=== PATIENT | female | born 1940 | race Caucasian/White ===

== ENCOUNTER 2017-01-16 17:17 | Inpatient (IN) | payer MEDICARE, MEDICAID ==
[~2017-01-16] VITALS: Ht 167.6 cm; Wt 70.3 kg
[2017-01-16 18:29] LABS: BASOPHILS 0.4 % (0-2); EOSINOPHILS 1.3 % (0-7); HEMATOCRIT 42.4 % (36.0-48.0); IMMATURE GRANULOCYTES 0.1 % (0-5); LYMPHOCYTES 28.2 % (15-50); MCH 30.6 pg (26.0-34.0); MCV 92.6 fL (80.0-100.0); MEAN PLATELET VOLUME 9.6 fL (7.4-10.4); MONOCYTES 8.3 % (2-11); NEUTROPHILS 61.7 % (40-80); PLATELET COUNT 209 10x3/uL (130-400); RBC 4.58 10x6/uL (4.00-5.40); RDW 13.3 % (11.5-14.5)
[2017-01-16 18:44] LABS: ALBUMIN 3.7 g/dL (3.4-5.0); ALKALINE PHOSPHATASE 111 U/L (46-116); ALT (SGPT) 17 U/L (10-68); BILIRUBIN - TOTAL 0.34 mg/dL (0.2-1.3); CALC OSMOLALITY 286 mosm/kg (275-300); CALCIUM 8.8 mg/dL (8.5-10.1); CARBON DIOXIDE 28.5 mmol/L (21.0-32.0); CHLORIDE - SERUM 105 mmol/L (98-107); CREATININE - SERUM 0.6 mg/dL (0.6-1.3); GLUCOSE 96 mg/dL (74-106); POTASSIUM - SERUM 3.3 mmol/L (3.5-5.1); PROTEIN - SERUM 7.4 g/dL (6.4-8.2); SODIUM 143 mmol/L (136-145); UREA NITROGEN 18 mg/dL (7-18); eGFR NON AFRICAN AMERICAN > 90 mL/min (90-120)
[2017-01-16 20:57] LABS: APPEARANCE CLEAR (CLEAR); COLOR DK YELLOW (YELLOW)
[2017-01-16 20:58] LABS: BILIRUBIN NEGATIVE (NEGATIVE); GLUCOSE NEGATIVE (NEGATIVE); KETONE MODERATE mg/dL (NEGATIVE); LEUKOCYTE ESTERASE NEGATIVE (NEGATIVE); NITRITE NEGATIVE (NEGATIVE); PROTEIN NEGATIVE (NEGATIVE); UROBILINOGEN NORMAL (NORMAL)
[2017-01-16 21:00] LABS: EPITHELIAL CELLS 0-5 /hpf (0-5)
[2017-01-16 21:03] LABS: BACTERIA MODERATE /hpf (NONE SEEN); CALCIUM OXALATE CRYSTALS OCC /hpf (NONE SEEN)
[2017-01-16 21:06] LABS: UDS - AMPHET NEGATIVE QUAL (NEGATIVE); UDS - BARB NEGATIVE QUAL (NEGATIVE); UDS - BENZO NEGATIVE QUAL (NEGATIVE); UDS - COCAINE NEGATIVE QUAL (NEGATIVE); UDS - METH NEGATIVE QUAL (NEGATIVE); UDS - OPIATE NEGATIVE QUAL (NEGATIVE); UDS - PCP NEGATIVE QUAL (NEGATIVE); UDS - THC NEGATIVE QUAL (NEGATIVE)
[2017-01-16 22:45] VITALS: BP 112/69; BMI 25.0
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
[2017-01-17] MEDS ORDERED: ARICEPT10 MG PO (01:46)
[2017-01-17] MEDS ORDERED: ATIVAN0.5 MG PO ×2 (01:47→01:48)
[2017-01-17] MEDS ORDERED: PAROXETINE HCL10 MG PO (01:49)
[2017-01-17] MEDS ORDERED: CYCLOBENZAPRINE10 MG PO (01:50)
[2017-01-17] MEDS ORDERED: BAYER CHEWABLE81 MG PO (01:50)
[2017-01-17] MEDS ORDERED: MACROBID100 MG PO (01:52)
[2017-01-17] MEDS ORDERED: IMODIUM2 MG PO (01:52)
[2017-01-17 06:32] LABS: BASOPHILS 0.4 % (0-2); EOSINOPHILS 1.7 % (0-7); HEMOGLOBIN 13.4 g/dL (12-16); IMMATURE GRANULOCYTES 0.2 % (0-5); LYMPHOCYTES 39.8 % (15-50); MCHC 32.7 g/dL (31.0-37.0); MCV 91.7 fL (80.0-100.0); MEAN PLATELET VOLUME 9.6 fL (7.4-10.4); MONOCYTES 7.9 % (2-11); PLATELET COUNT 187 10x3/uL (130-400); RBC 4.47 10x6/uL (4.00-5.40); RDW 13.1 % (11.5-14.5); WBC 5.2 10x3/uL (4.8-10.8)
[2017-01-17 06:46] LABS: HEMOGLOBIN A1C 5.1 % (4.8-6.0)
[2017-01-17 06:59] LABS: ALBUMIN 3.3 g/dL (3.4-5.0); ALKALINE PHOSPHATASE 103 U/L (46-116); ALT (SGPT) 17 U/L (10-68); BILIRUBIN - TOTAL 0.43 mg/dL (0.2-1.3); CALC OSMOLALITY 289 mosm/kg (275-300); CALCIUM 8.5 mg/dL (8.5-10.1); CARBON DIOXIDE 30.7 mmol/L (21.0-32.0); CHLORIDE - SERUM 107 mmol/L (98-107); CHOL - HDL RATIO 4.1 ratio (2.3-4.1); CHOLESTEROL, TOTAL 232 mg/dL (0-200); CREATININE - SERUM 0.5 mg/dL (0.6-1.3); GLUCOSE 92 mg/dL (74-106); HDL CHOLESTEROL 57 mg/dL (32-96); LDL CHOLESTEROL 157 mg/dL (0-100); LDL-HDL RATIO 2.8 ratio (1.5-3.5); PROTEIN - SERUM 6.9 g/dL (6.4-8.2); SODIUM 144 mmol/L (136-145); THYROID STIMULATING HORMONE 2.78 uIU/mL (0.36-3.74); TRIGLYCERIDE 93 mg/dL (30-200); UREA NITROGEN 21 mg/dL (7-18); eGFR NON AFRICAN AMERICAN > 90 mL/min (90-120)
[2017-01-17 08:40] VITALS: BP 115/64
--- NOTE | 2017-01-17 10:57 | NUR ---
B) PATIENT IS AWAKE AND SHE IS ORIENTED TO SELF AND KNOWS SHE IS IN THE HOSPITAL, BUT DOES NOT HAVE INSIGHT TO WHY SHE IS HERE. PATIENTS LEFT ARM IS CONTRACTURED AND LEFT LEG IS VERY WEAK. PATIENT HAS ASKED WHEN SHE CAN HAVE HER PHONE, EXPLAINED TO HER WHEN SHE IS DISCHARGED FROM HERE. PATIENT VERBALIZED UNDERSTANDING. PATIENTS SISTER CAME TO THE UNIT TO ASK ABOUT NEXT STEPS THEY NEED TO FOLLOW. SHE AND THE PATIENTS SON WOULD LIKE TO GET POA AND THEY FEEL THEIR NEXT STEP IS SKILLED NURSING PLACEMENT. I) PROVIDE PRESCRIBED MEDS, REDIRECT AND REORIENT NEEDED. R) PATIENT IS IN GROUP NOW AND SHE IS PARTICIPATING. NO AGGRESSION NOTED THIS AM. P) CONTINUE POC.
[2017-01-17 15:14] VITALS: BMI 25.0
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
[2017-01-17 19:30] VITALS: BP 116/74
--- NOTE | 2017-01-18 03:31 | NUR ---
B) patient alert and oriented to person place and time, patient not fully aware of why she is her, she wants to return home, calm and cooperative with care and assessment, I) Administered perscribed medications, monitored for safety and behaviors, R) Medication compliant, unit milieu compliant, P) Continue plan of care.
[2017-01-18 07:22] LABS: FOLATE (FOLIC ACID) - SERUM >20.0 ng/mL (>3.0); RAPID PLASMA REAGIN Non Reactive (Non Reactive)
--- NOTE | 2017-01-18 10:00 | NUR ---
B) AWAKE AND ORIENT TO NAME AND PLACE, BUT ON INSIGHT TO REASON SHE IS IN HOSPITAL. LEFT ARM IS CONTRACTED FROM OLD CVA, ALSO LEFT LEG VERY WEAK. CALM AND COOPERATIVE WITH ASSESSMENT AND CARE. PLEASANT MOOD AND POLITE TO STAFF. I) ADMINISTERED PRESCRIBED MEDICATIONS. REDIRECT AND REORIENT ORDERED. R) COMPLIANT WITH MEDICATIONS. VSS MONITOR FOR SAFETY AND FALL PRECAUTIONS. P) CONTINUE WITH PLAN OF CARE.
[2017-01-18 10:02] VITALS: BP 110/68
[2017-01-18 19:30] VITALS: BP 139/78
--- NOTE | 2017-01-18 20:42 | NUR ---
B) PATIENT IS AWAKE AND ALERT, SHE IS ORIENTED TIMES 3, BUT SHE IS FLAT TO BLUNTED IN AFFECT. SHE IS CALM, BUT STILL DOES NOT BELIEVE SHE NEEDS TO BE HERE. PATIENT CAN SELF PROPEL IN A W/C GOING BACKWARD. I) PROVIDE PRESCRIBED MEDS. R) PATIENT IS COMPLIANT WITH MEDS AND UNIT MILIEU. P) CONTINUE POC.
[2017-01-19 09:23] VITALS: BP 104/64
--- NOTE | 2017-01-19 15:01 | NUR ---
SITTING AT TABLE IN WHEELCHAIR. COMPLAINING OF LEFT SHOULDER PAIN. VOLTAREN GEL IN USE. DENIES ANY NEEDS AT PRESENT. MOOD CALM AND COOPERATIVE AT THIS TIME.
[2017-01-19 19:30] VITALS: BP 110/93
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
[2017-01-20 07:48] VITALS: BP 105/65
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
--- NOTE | 2017-01-20 11:02 | NUR ---
PT CONTINUES TO MAKE RANDOM PARANOID DELUSIONAL STATEMENTS. ORIENTED TO PERSON AND PLACE. EDUCATED ON CURRENT ENVIORNMENT AND WHAT IS REALITY VERSUS HER DELUSIONS. NO AGGRESSION NOTED. MEDICATIONS GIVEN ORDERED. FALL PRECAUTIONS MAINTAINED. WILL CONTINUE TO MONITOR AND CONTINUE WITH PLAN OF CARE.
[2017-01-20 19:29] VITALS: BP 105/51
--- NOTE | 2017-01-21 02:20 | NUR ---
B) P atient alert and oriented to self and hospital, calm and cooperative with care and assessment, quiet and keeping to herself, I) Administered perscribed medications, monitored for behaviors, R) Medication compliant, no behaviors noted, P) Continue plan of care.
--- NOTE | 2017-01-21 09:49 | NUR ---
PT IS CALM, COOPERATIVE. NO AGGRESSION NOTED. MEDICATIONS GIVEN ORDERED. FALL PRECAUTIONS MAINTAINED. WILL CONTINUE TO MONITOR AND CONTINUE WITH PLAN OF CARE.
[2017-01-21 10:18] VITALS: BP 117/64
--- NOTE | 2017-01-21 10:54 | PN ---
PATIENT:CRISTI SAGASTUME MEDICAL RECORD: [id number] LOCATION:[facility] ADMISSION DATE: 01/16/17 PROGRESS NOTE DATE OF SERVICE: 01/20/2017 SUBJECTIVE: The patient complains of loss of feeling and cold sensation in her left lower extremity. On exam, the patient is pleasant and cooperative. Staff will notify Dr. Hong about founding. The patient has been taking her medication as prescribed. She does exhibit significant paranoid delusional ideation in particular regarding her and family. On exam, mood is euthymic. Affect is fairly pleasant. Speech tends to be tangential. Content of thought focuses on seems of persecution. Sensorium is unchanged. ASSESSMENT: No change in diagnosis. PLAN: 1. Maintain current medication. 2. Continue supportive therapy. TRANSINT:[id number] Voice Confirmation ID: [id number] DOCUMENT ID: [id number] OBED GERMAIN III, MD at 1054 CC: [id number] DICTATION DATE: 01/20/17 1040 SCRAP COLLECTOR: 01/20/17 1930 ADM IN [facility] [address] [id number]
[2017-01-21 15:09] VITALS: Ht 167.6 cm; Wt 70.3 kg
[2017-01-21 19:30] VITALS: BP 122/68
--- NOTE | 2017-01-22 00:26 | NUR ---
B) Patient is alert and oriented , calm and cooperative, I) Administered perscribed medications, monitored for falls and safety, R) Medication compliant, resting quietly P) Continue plan of care.
[2017-01-22 08:37] VITALS: BP 108/57
--- NOTE | 2017-01-22 10:25 | PN ---
PATIENT:CRISTI SAGASTUME MEDICAL RECORD: [id number] LOCATION:[facility] ADMISSION DATE: 01/16/17 PROGRESS NOTE DATE OF SERVICE: 01/21/2017 SUBJECTIVE: No new verbal complaint. OBJECTIVE: Case management is in the process of making application on behalf of the patient for admission to [facility]. The patient underwent neuropsychological testing and scored a 22/30 on the [facility] Mental Status Scale this exhibits a borderline dementia. Of note is that her clock drawing efforts on that portion of the test were exceedingly poor. Short-term memory; however, was fairly good. On exam, mood is euthymic, affect is bland and pleasant. Speech is fairly fluent. Content of thought is negative for overt psychosis. Sensorium is unchanged. ASSESSMENT: No change in diagnosis. PLAN: 1. We will maintain current treatment plan. 2. Advance Namenda to 10 mg twice a day. TRANSINT:[id number] Voice Confirmation ID: [id number] DOCUMENT ID: [id number] OBED GERMAIN III, MD at 1025 CC: [id number] DICTATION DATE: 01/21/17 1147 HOME PLANNING CONSULTANT SALESPERSON: 01/21/17 1233 ADM IN [facility] [address] [place] [address]
--- NOTE | 2017-01-22 11:08 | NUR ---
B) Rec'd pt in dining room for b'fast, alert, cooperative, feeds self without difficulty, left sided paralysis due to old cva. I) Admin meds as ordered and provide group therapy as directed. R) No s/s adverse reaction to meds, participates in group therapy. P) Cont plan of care including meds and group therapy.
[2017-01-22 21:41] VITALS: BP 153/83
--- NOTE | 2017-01-23 01:01 | NUR ---
B) P atient alert and oriented calm and cooperative with care and assessment, no behaviors noted, I) Administered perscribed medications, monitored for falls and safety, R) Medication compliant, resting now quietly, P) Continue plan of care.
--- NOTE | 2017-01-23 03:51 | PN ---
PATIENT:CRISTI SAGASTUME MEDICAL RECORD: [id number] LOCATION:[facility] ADMISSION DATE: 01/16/17 PROGRESS NOTE DATE OF SERVICE: 01/22/2017 SUBJECTIVE: No new complaint. OBJECTIVE: The patient has continued to be cooperative and pleasant. She will need a [place] assessment prior to possible transfer to senior living. On exam, mood is euthymic. Affect is bland. Speech is fairly fluent. Content of thought is negative for overt psychosis. Sensorium shows no change. ASSESSMENT: No change in diagnosis. PLAN: 1. Continue all current medications. 2. Continue supportive therapy. TRANSINT:[id number] Voice Confirmation ID: [id number] DOCUMENT ID: [id number] OBED GERMAIN III, MD at 0351 CC: [id number] DICTATION DATE: 01/22/17 1114 NETWORK DIRECTOR: 01/22/17 1746 ADM IN [facility] [address] [place] [address]
--- NOTE | 2017-01-23 07:45 | NUR ---
ASSESSMENT COMPLETE. INCONT OF BLADDER AT TIMES. PARALYSIS AND CONTRACTURES NOTED TO LUE. WEAKNESS NOTED TO LLE. MOOD PLEASANT THIS AM. DENIES ANY NEEDS AT PRESENT.
[2017-01-23] MEDS ORDERED: LIPITOR10 MG PO (11:10)
[2017-01-23] MEDS ORDERED: LEXAPRO10 MG PO (11:11)
[2017-01-23] MEDS ORDERED: NAMENDA5 MG PO (11:11)
[2017-01-23 19:52] VITALS: BP 120/62
--- NOTE | 2017-01-23 20:00 | NUR ---
B) AWAKE AND ALERT, ORIENTED X 3. SITTING IN WHEELCHAIR IN DAYROOM. CALM AND COOPERATIVE WITH ASSESSMENT AND CARE. NO AGGRESSION NOTED. I) ADMINISTERED PRESCRIBED MEDICATIONS. VSS. R) COMPLIANT WITH TAKING MEDS AND UNIT MILIEU. MAINTAIN FALL PRECAUTIONS. P) CONTINUE CURRENT PLAN OF CARE.
[2017-01-24 08:46] VITALS: BP 105/54
--- NOTE | 2017-01-24 10:18 | NUR ---
B) PATIENT IS AWAKE AND ALERT AND SHE KNOWS SHE WILL BE GOING TO [place] TODAY. SHE SAID "WELL, NO ONE WANTS ME SO I AM GOING TO THE [facility]" TRIED TO EXPLAIN TO PATIENT THAT IS NOT TRUE, BUT THAT SHE REQUIRES MORE CARE AND FOR HER SAFETY AND MENTAL HEALTH SHE NEEDS TO HAVE 24/7 CARE. I) PROVIDE PRESCRIBED MEDS. R) PATIENT IS COMPLIANT WITH MEDS AND UNIT MILIEU. PATIENT IS PACKED AND READY TO GO, WILL FAX AND PROVIDE A HARD COPY FOR THE REGISTERED NURSING PROFESSOR TO HAND CARRY TO [employer]. P) CONTINUE POC.
--- NOTE | 2017-01-24 12:24 | NUR ---
CALLED REPORT TO JUAN MANUEL.
--- NOTE | 2017-01-24 13:06 | NUR ---
TORIBIO HERE AND REMELT SUGAR BOILER ALONG WITH HALF-WAY STAFF ASSISTED PATIENT TO THEIR VAN IN A W/C, SHE IS NOW D/C'D OFF THE UNIT.
--- NOTE | 2017-01-25 10:43 | PN ---
PATIENT:CRISTI SAGASTUME MEDICAL RECORD: [id number] LOCATION:[facility]ANIE García ADMISSION DATE: 01/16/17 PROGRESS NOTE DATE OF SERVICE: 01/24/2017 SUBJECTIVE: The patient's case was discussed with staff. She has no new complaint. OBJECTIVE: The patient is seriously and significantly impaired cognitively. She has not been aggressive. She is eating reasonably well. ASSESSMENT: No change in diagnoses. PLAN: The patient will be transitioned out of the hospital today. Her long-term prognosis is guarded. Brief supportive and educational interventions were made. TRANSINT:[id number] Voice Confirmation ID: [id number] DOCUMENT ID: [id number] YANET ALBARRAN MD at 1043 CC: [id number] DICTATION DATE: 01/24/17 1237 GAUGE MAKER APPRENTICE: 01/24/17 1729 DIS IN 01/24/[address] [place] [address]
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
== END 2017-01-24 13:08 | DRG 57 ==
LOC: D.ER 17:17 → D.PSYCH 21:41
PROVIDERS: Emergency Medicine; ADMIT Psychiatry & Neurology Psychiatry
DX: I69.919 Unspecified symptoms and signs involving cognitive functions following unspecified cerebrovascular disease (principal); F01.51 Vascular dementia, unspecified severity, with behavioral disturbance; I69.954 Hemiplegia and hemiparesis following unspecified cerebrovascular disease affecting left non-dominant side; N39.0 Urinary tract infection, site not specified; E78.5 Hyperlipidemia, unspecified; Z74.09 Other reduced mobility; F41.8 Other specified anxiety disorders; M19.012 Primary osteoarthritis, left shoulder

== ENCOUNTER 2017-04-16 13:10 | Emergency (ER) | payer MEDICARE ==
[2017-01-21 15:09] VITALS: BMI 25.0
[~2017-04-16 13:10] MED LIST: ARICEPT10 MG PO; ATIVAN0.5 MG PO; BAYER CHEWABLE81 MG PO; CYCLOBENZAPRINE10 MG PO; IMODIUM2 MG PO; LEXAPRO10 MG PO; LIPITOR10 MG PO; MACROBID100 MG PO; NAMENDA5 MG PO; PAROXETINE HCL10 MG PO
[2017-04-16 14:20] LABS: BASOPHILS 0.3 % (0-2); EOSINOPHILS 0.8 % (0-7); HEMATOCRIT 40.3 % (36.0-48.0); HEMOGLOBIN 12.8 g/dL (12-16); LYMPHOCYTES 30.3 % (15-50); MCH 30.1 pg (26.0-34.0); MCHC 31.8 g/dL (31.0-37.0); MCV 94.8 fL (80.0-100.0); MEAN PLATELET VOLUME 10.1 fL (7.4-10.4); MONOCYTES 6.8 % (2-11); NEUTROPHILS 61.8 % (40-80); PLATELET COUNT 197 10x3/uL (130-400); RBC 4.25 10x6/uL (4.00-5.40); RDW 13.7 % (11.5-14.5); WBC 5.9 10x3/uL (4.8-10.8)
[2017-04-16 14:35] LABS: INR 0.93 (0.85-1.17); PROTIME 12.3 SECONDS (11.6-15.0)
[2017-04-16 14:46] LABS: ALBUMIN 3.6 g/dL (3.4-5.0); ALKALINE PHOSPHATASE 153 U/L (46-116); ALT (SGPT) 20 U/L (10-68); CALC OSMOLALITY 284 mosm/kg (275-300); CALCIUM 8.8 mg/dL (8.5-10.1); CARBON DIOXIDE 26.5 mmol/L (21.0-32.0); CHLORIDE - SERUM 107 mmol/L (98-107); CREATININE - SERUM 0.6 mg/dL (0.6-1.3); GLUCOSE 85 mg/dL (74-106); POTASSIUM - SERUM 3.9 mmol/L (3.5-5.1); PROTEIN - SERUM 6.8 g/dL (6.4-8.2); SODIUM 142 mmol/L (136-145); UREA NITROGEN 21 mg/dL (7-18); eGFR NON AFRICAN AMERICAN > 90 mL/min (90-120)
[2017-04-16 14:53] LABS: CREATINE KINASE 51 UL (21-215); PRO BNP 175 pg/mL (0-450)
[2017-04-16 15:05] LABS: TROPONIN-I < 0.017 ng/mL (0.000-0.060)
[2017-04-16 15:32] LABS: APPEARANCE CLEAR (CLEAR); BILIRUBIN NEGATIVE (NEGATIVE); COLOR YELLOW (YELLOW); GLUCOSE NEGATIVE (NEGATIVE); KETONE NEGATIVE (NEGATIVE); NITRITE NEGATIVE (NEGATIVE); PROTEIN NEGATIVE (NEGATIVE); SPECIFIC GRAVITY 1.015 (1.005-1.020); UROBILINOGEN NORMAL (NORMAL)
[2017-04-16 15:45] LABS: UDS - AMPHET NEGATIVE QUAL (NEGATIVE); UDS - BARB NEGATIVE QUAL (NEGATIVE); UDS - BENZO NEGATIVE QUAL (NEGATIVE); UDS - COCAINE NEGATIVE QUAL (NEGATIVE); UDS - OPIATE NEGATIVE QUAL (NEGATIVE); UDS - PCP NEGATIVE QUAL (NEGATIVE); UDS - THC NEGATIVE QUAL (NEGATIVE)
== END 2017-04-16 17:04 | disposition home or self-care (01) ==
LOC: D.ER 13:10
PROVIDERS: Nurse Practitioner Family
DX: R53.1 Weakness (principal); Z86.73 Personal history of transient ischemic attack (TIA), and cerebral infarction without residual deficits; R20.2 Paresthesia of skin

== ENCOUNTER 2017-05-12 09:55 | Inpatient (IN) | payer MEDICARE, MEDICAID ==
[~2017-05-12] VITALS: Ht 167.6 cm; Wt 68.2 kg
[2017-05-12 10:35] LABS: UDS - AMPHET NEGATIVE QUAL (NEGATIVE); UDS - BARB NEGATIVE QUAL (NEGATIVE); UDS - BENZO NEGATIVE QUAL (NEGATIVE); UDS - COCAINE NEGATIVE QUAL (NEGATIVE); UDS - OPIATE NEGATIVE QUAL (NEGATIVE); UDS - PCP NEGATIVE QUAL (NEGATIVE); UDS - THC NEGATIVE QUAL (NEGATIVE)
[2017-05-12 10:40] LABS: APPEARANCE CLOUDY (CLEAR); BILIRUBIN NEGATIVE (NEGATIVE); COLOR YELLOW (YELLOW); GLUCOSE NEGATIVE (NEGATIVE); KETONE NEGATIVE (NEGATIVE); NITRITE NEGATIVE (NEGATIVE); PROTEIN NEGATIVE (NEGATIVE); SPECIFIC GRAVITY 1.005 (1.005-1.020); UROBILINOGEN NORMAL (NORMAL); WHITE CELLS - URINE 0-5 /hpf (0-5)
[2017-05-12 10:41] LABS: BACTERIA MANY /hpf (NONE SEEN); EPITHELIAL CELLS OCC /hpf (0-5); MUCUS <1+ /lpf (NONE SEEN); RED CELLS - URINE 0-5 /hpf (0-5)
[2017-05-12 10:51] LABS: BASOPHILS 0.6 % (0-2); EOSINOPHILS 1.3 % (0-7); HEMATOCRIT 42.5 % (36.0-48.0); HEMOGLOBIN 13.4 g/dL (12-16); IMMATURE GRANULOCYTES 0.2 % (0-5); LYMPHOCYTES 25.4 % (15-50); MCH 29.8 pg (26.0-34.0); MCHC 31.5 g/dL (31.0-37.0); MCV 94.4 fL (80.0-100.0); MEAN PLATELET VOLUME 9.9 fL (7.4-10.4); MONOCYTES 6.9 % (2-11); NEUTROPHILS 65.6 % (40-80); PLATELET COUNT 214 10x3/uL (130-400); RDW 13.4 % (11.5-14.5); WBC 5.2 10x3/uL (4.8-10.8)
[2017-05-12 11:16] LABS: ALBUMIN 3.5 g/dL (3.4-5.0); ALKALINE PHOSPHATASE 113 U/L (46-116); ALT (SGPT) 16 U/L (10-68); CALC OSMOLALITY 284 mosm/kg (275-300); CALCIUM 9.2 mg/dL (8.5-10.1); CARBON DIOXIDE 28.7 mmol/L (21.0-32.0); CHLORIDE - SERUM 107 mmol/L (98-107); CREATININE - SERUM 0.6 mg/dL (0.6-1.3); GLUCOSE 111 mg/dL (74-106); POTASSIUM - SERUM 3.7 mmol/L (3.5-5.1); PROTEIN - SERUM 7.1 g/dL (6.4-8.2); SODIUM 142 mmol/L (136-145); UREA NITROGEN 16 mg/dL (7-18); eGFR NON AFRICAN AMERICAN > 90 mL/min (90-120)
--- NOTE | 2017-05-12 15:00 | NUR ---
ADMITTED TO ROOM [address] [facility] ER. DX; DEMENTIA WITH BEHAVIORS. HX OF CVA, WITH LEFT SIDED CONTRACTURE ARM AND LEG. SHE WAS HAVING IRRATIC BEHAVIORS OF ANGER, THROWING THINGS, COMBATIVE, TEARFUL AND MEAN WITH AGGRESSION. SHE HAS BEEN CALM SINCE ARRIVING TO UNIT. ASSESSMENT COMPLETED. WILL CONTINUE TO MONITOR.
[2017-05-12] MEDS ORDERED: NAMENDA10 MG PO (19:39)
[2017-05-12] MEDS ORDERED: ATIVAN0.5 MG PO (19:40)
[2017-05-12 20:14] VITALS: BP 111/62
[2017-05-12 20:53] VITALS: BP 118/62; BMI 24.2
--- NOTE | 2017-05-12 23:15 | NUR ---
RECEIVED IN BEDROOM. RESTING IN BED WITH EYES CLOSED. RESPONDS TO VOICE. CALM AND COOPERATIVE WITH CARE AND ASSESSMENTS. NO SIGNS OF AGGRESSION. REDIRECT AND REORIENT NEEDED. RESTING IN BED EYES CLOSED AT THIS TIME. CONTINUE PLAN OF CARE
[2017-05-13 06:01] LABS: HEMOGLOBIN A1C 5.6 % (4.8-6.0)
[2017-05-13 06:14] LABS: CHOL - HDL RATIO 4.2 ratio (2.3-4.1); LDL-HDL RATIO 2.8 ratio (1.5-3.5); THYROID STIMULATING HORMONE 2.74 uIU/mL (0.36-3.74)
--- NOTE | 2017-05-13 08:10 | NUR ---
ORIENTED X 3. CALM AND TEARFUL, BUT COOPERATIVE WITH STAFF AND ASSESSMENT. COMPLIANT WITH PRESCRIBED MEDICATIONS. FALL PRECAUTIONS MAINTAINED. WILL CONTINUE PLAN OF CARE.
[2017-05-13 09:37] VITALS: BP 119/65
[2017-05-13 10:38] VITALS: BMI 24.2
[2017-05-13 13:33] VITALS: Ht 167.6 cm; Wt 68.2 kg
--- NOTE | 2017-05-13 19:29 | NUR ---
RECEIVED IN BEDROOM. RESTING IN BED WITH EYES OPEN. CALM AND COOPERATIVE WITH CARE AND ASSESSMENT. NO SIGNS OF AGGRESSION. ENCOURAGE TO EXPRESS NEEDS. RESTING IN BED WITH EYES CLOSED AT THIS TIME. CONTINUE PLAN OF CARE.
[2017-05-13 20:17] VITALS: BP 116/42
[2017-05-14 05:15] LABS: FOLATE (FOLIC ACID) - SERUM 13.4 ng/mL (>3.0)
[2017-05-14 06:14] LABS: RAPID PLASMA REAGIN Non Reactive (Non Reactive)
[2017-05-14 08:20] LABS: VITAMIN D 25 HYDROXY 22.9 ng/mL (30.0-100.0)
--- NOTE | 2017-05-14 08:30 | NUR ---
Rec'd pt in dining room for b'fast, alert, appetite good, no aggression noted, no tearfulness noted. Med compliant, cooperative, calm, cheerful. Corby meds well. Cont POC until d/c.
[2017-05-14 09:04] VITALS: BP 111/67
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
[2017-05-14 19:36] VITALS: BP 140/70
--- NOTE | 2017-05-14 22:44 | NUR ---
RECEIVED IN PATIENT ROOM. RESTING IN BED WITH EYES OPEN. CALM AND COOPERATIVE WITH CARE AND ASSESSMENT. NO SIGNS OF AGGRESSION. ENCOURAGE TO EXPRESS NEEDS. REDIRECT AND REORIENT NEEDED. RESTING IN BED WITH EYES CLOSED AT THIS TIME. CONTINUE PLAN OF CARE.
--- NOTE | 2017-05-15 09:56 | PN ---
PATIENT:CRISTI SAGASTUME MEDICAL RECORD: [id number] LOCATION:STEPHANIE García ADMISSION DATE: 05/12/17 PROGRESS NOTE DATE OF SERVICE: 05/14/2017 SUBJECTIVE: The patient's case was discussed with staff. She has no new complaint. OBJECTIVE: The patient has a depressed mood, but no thoughts of self-harm. She has not been aggressive today. ASSESSMENT: No change in diagnoses. PLAN: The patient has been accepted at the [facility]. I think if this level of improvement is maintained, she could be transitioned in a day or two. Her long-term prognosis is guarded. TRANSINT:[id number] Voice Confirmation ID: [id number] DOCUMENT ID: [id number] YANET ALBARRAN MD at 0956 CC: [id number] DICTATION DATE: 05/14/17 1259 CONCRETE CARPENTER: 05/14/17 1308 ADM IN [id number] [place] [address]
[2017-05-15 10:06] VITALS: BP 128/76
--- NOTE | 2017-05-15 11:41 | NUR ---
B) PATIENT IS AWAKE AND ALERT, SHE IS CONFUSED AT TIMES. SHE IS COMPLIANT WITH MEDS AND UNIT MILIEU. I) PROVIDE PRESCRIBED MEDS. R) PATIENT CAN SELF PROPEL IN A W/C. SHE IS INTERACTING WITH STAFF AND PEERS TODAY. NO AGGRESSION NOTED THIS AM. P) CONTINUE POC.
[2017-05-15 19:22] VITALS: BP 115/78
--- NOTE | 2017-05-16 01:52 | NUR ---
B) Patient is alert and oriented to self, calm and cooperative with care and assessment, I) Administered scheduled medications, monitored for safety, R) Medication compliant, resting quietly, P) Continue plan of care.
[2017-05-16 09:06] VITALS: BP 109/57
--- NOTE | 2017-05-16 09:17 | PN ---
PATIENT:CRISTI SAGASTUME MEDICAL RECORD: [id number] LOCATION:STEPHANIE García ADMISSION DATE: 05/12/17 PROGRESS NOTE DATE OF SERVICE: 05/15/2017 SUBJECTIVE: The patient's case was discussed with staff. She has no new complaint. OBJECTIVE: The patient is pleasant and cooperative, although severely impaired cognitively. She has no current medication side effects. ASSESSMENT: No change in diagnoses. PLAN: Brief supportive and educational interventions were made. The patient's long-term prognosis is guarded. TRANSINT:[id number] Voice Confirmation ID: [id number] DOCUMENT ID: [id number] YANET ALBARRAN MD at 0917 CC: [id number] DICTATION DATE: 05/15/17 1000 ROLL HAULER: 05/15/17 1045 ADM IN [address] [place] [address]
--- NOTE | 2017-05-16 10:57 | NUR ---
B) Patient is awake and alert, she is pleasant, she does say she feels like she has a urinary tract infection, explained to her that we will probably get a u/a on her. She said she believes she will need one. I) Provide prescribed meds. R) Patient is compliant with meds and she socializes with her peers. No aggression noted. P) Continue poc.
--- NOTE | 2017-05-16 11:42 | NUR ---
LATE ENTRY FROM 05/15 SW MET WITH PT'S SISTER, TIGIST, AND DISCUSSED UPCOMING DISCHARGE. PT STATED SHE IS LOOKING FORWARD TO TRANSFER AND GETTING STRONGER. TIGIST VERBALIZED UNDERSTANDING OF CONVERSATION.
--- NOTE | 2017-05-16 13:33 | NUR ---
ATTEMPTED TO GET URINE FOR UA AND MICRO, BUT PATIENT HAD VOIDED AND HAD TO CLEAN HER UP, CHANGED HER BRIEF AND PUT ON NEW PANTS. PATIENT TAKEN TO THE DAY ROOM.
[2017-05-16 19:57] VITALS: BP 107/60
--- NOTE | 2017-05-16 23:13 | NUR ---
B) patient is alert and oriented to person place and month, calm and cooperative, I) Administered scheduled medications, monitored for safety, R) medication compliant, pleasnat and friendly, social with peers, P) Continue plan of care.
[2017-05-17 08:00] VITALS: BP 108/60
--- NOTE | 2017-05-17 08:00 | NUR ---
B) PATIENT IS AWAKE AND ALERT, SHE IS IN A POSITIVE MOOD, SHE SAYS SHE SLEPT WELL LAST NOW AND SHE IS TRYING TO STAY HAPPY BECAUSE SHE KNOWS FRIDAY SHE IS GOING TO [facility]. PATIENT IS IN A W/C AND SHE SELF PROPELS, SHE DOES HAVE THE LEFT ARM THAT IS CONTRACTURED, BUT SHE IS ABLE TO ASSIST WITH TRANSFERS. I) PROCIDE PRESCRIBED MEDS. R) PATIENT IS COMPLIANT WITH MEDS AND UNIT [facility]. SHE HAS NOT SHOWN ANY AGGRESSION TODAY. P) CONTINUE POC.
--- NOTE | 2017-05-17 10:24 | NUR ---
OBTAINED URINE SPECIMEN FOR UA AND C&S. WILL SEND TO LAB
[2017-05-17 10:35] LABS: APPEARANCE HAZY (CLEAR); COLOR YELLOW (YELLOW)
[2017-05-17 10:36] LABS: BILIRUBIN NEGATIVE (NEGATIVE); GLUCOSE NEGATIVE (NEGATIVE); KETONE NEGATIVE (NEGATIVE); NITRITE POSITIVE (NEGATIVE); PROTEIN 1+ mg/dL (NEGATIVE); UROBILINOGEN NORMAL (NORMAL)
[2017-05-17 10:37] LABS: BACTERIA MODERATE /hpf (NONE SEEN); WHITE CELLS - URINE >50 /hpf (0-5)
--- NOTE | 2017-05-17 11:29 | PN ---
PATIENT:CRISTI SAGASTUME MEDICAL RECORD: [id number] LOCATION:[facility] ADMISSION DATE: 05/12/17 PROGRESS NOTE DATE OF SERVICE: 05/16/2017 SUBJECTIVE: The patient's case was discussed with staff. She has no new complaint. OBJECTIVE: The patient is in good behavioral control. She is impaired cognitively, but has not been aggressive. ASSESSMENT: No change in diagnoses. PLAN: The patient is going to be transitioned out of the hospital into the half-way in the next couple of days if this level of improvement is maintained. TRANSINT:[id number] Voice Confirmation ID: [id number] DOCUMENT ID: [id number] YANET ALBARRAN MD at 1129 CC: [id number] DICTATION DATE: 05/16/17924 EARLY BREASTFEEDING CARE SPECIALIST: 05/16/17 1113 ADM IN [id number] [place] [address]
[2017-05-17 21:13] VITALS: BP 116/64
--- NOTE | 2017-05-18 04:48 | NUR ---
B) Patient is alert and oriented, calm and cooperative with staff, sociall with peers, I) Administered scheduled medications, monitored for safety R) Medication compliant, resting quietly in bed, P) Continue plan of care.
[2017-05-18 07:00] VITALS: BP 115/68
--- NOTE | 2017-05-18 08:00 | NUR ---
ALERT AND ORIENTED.PROPELLS SELF IN WHEELCHAIR.COMPLIANT WITH STAFF.LEFT ARM CONTRACTED.WILL CONTINUE WITH PLAN OF CARE.MONITOR FOR CHANGES AND SAFETY.
--- NOTE | 2017-05-18 12:01 | PN ---
PATIENT:CRISTI SAGASTUME MEDICAL RECORD: [id number] LOCATION:[facility] ADMISSION DATE: 05/12/17 PROGRESS NOTE DATE OF SERVICE: 05/17/2017 SUBJECTIVE: The patient's case was discussed with staff. She has no new complaint. OBJECTIVE: The patient has been in good behavioral control and has not been aggressive. ASSESSMENT: No change in diagnoses. PLAN: The patient is sleeping and eating reasonably well. She has limited insight about her condition. Her long-term prognosis is guarded. TRANSINT:[id number] Voice Confirmation ID: [id number] DOCUMENT ID: [id number] YANET ALBARRAN MD at 1201 CC: [id number] DICTATION DATE: 05/17/17 1136 ROOF ASSEMBLER: 05/17/17 1251 ADM IN [facility] [address] [place] [address]
[2017-05-18] MEDS ORDERED: BACTRIM DS TABL1 TAB PO (12:04)
[2017-05-18] MEDS ORDERED: VITAMIN B-121000 MCG PO (12:05)
[2017-05-18] MEDS ORDERED: VITAMIN D5000 UNIT PO (12:05)
[2017-05-18] MEDS ORDERED: FLORAJEN3 CAPS460 MG PO (12:05)
--- NOTE | 2017-05-18 20:07 | NUR ---
RECEIVED IN BEDROOM. SITTING IN A WHEELCHAIR. ASSIST TO TRANSFERE TO TOILET. CALM AND COOPERATIVE WITH CARE AND ASSESSMENTS. NO SIGNS OF AGGRESSION. ENCOURAGE TO EXPRESS NEEDS. RESTING IN BED WITH EYES CLOSED AT THIS TIME. CONTINUE PLAN OF CARE
[2017-05-18 20:29] VITALS: BP 134/60
[2017-05-19 07:00] VITALS: BP 112/71
--- NOTE | 2017-05-19 08:57 | NUR ---
PT AM MEDS ADMINISTERED WITH NO PROBLEMS. PT SITTING AT TABLE AT THIS TIME, DENIES NEEDS. WCTM.
--- NOTE | 2017-05-19 10:00 | NUR ---
LEFT HOSPITAL VIA WHEELCHAIR. WITH FAMILY. REPORT CALLED TO CHERI AT [facility].
--- NOTE | 2017-05-19 11:15 | NUR ---
PATIENT IS CALM AND COOPERATIVE. NO AGGRESSION . DISCHARGE PAPERWORK WAS FAXED TO [facility]. MEDICATIONS GIVEN ORDERED. FALL PRECAUTIONS MAINTAINED. WILL CONTINUE PLAN OF CARE.
--- NOTE | 2017-05-19 13:51 | PN ---
PATIENT:CRISTI SAGASTUME MEDICAL RECORD: [id number] LOCATION:[facility] ADMISSION DATE: 05/12/17 PROGRESS NOTE DATE OF SERVICE: 05/18/2017 SUBJECTIVE: The patient's case was discussed with staff. She has no new complaint. OBJECTIVE: The patient is in good behavioral control with poor insight about her condition. She generally tolerates her medicines well. She has very limited insight about her situation. ASSESSMENT: No change in diagnoses. PLAN: I anticipate the patient can be transitioned out of the hospital soon if this level of improvement is maintained. Her long-term prognosis is guarded. TRANSINT:[id number] Voice Confirmation ID: [id number] DOCUMENT ID: [id number] YANET ALBARRAN MD at 1351 CC: [id number] DICTATION DATE: 05/18/17 1203 TECHNICAL SOLUTIONS CONSULTANT: 05/18/17 1217 DIS IN 05/19/17 [id number] [place] [address]
--- NOTE | 2017-05-20 11:52 | PN ---
PATIENT:CRISTI SAGASTUME MEDICAL RECORD: [id number] LOCATION:[facility] ADMISSION DATE: 05/12/17 PROGRESS NOTE DATE OF SERVICE: 05/19/2017 SUBJECTIVE: The patient's case was discussed with staff. She has no new complaint. OBJECTIVE: The patient is in good behavioral control with limited insight about her condition. She tolerates her medicines well. ASSESSMENT: No change in diagnoses. PLAN: Current medicines and therapies have been reviewed and will be maintained. Long-term prognosis is guarded. Brief supportive and educational interventions were made. TRANSINT:[id number] Voice Confirmation ID: [id number] DOCUMENT ID: [id number] YANET ALBARRAN MD at 1152 CC: [id number] DICTATION DATE: 05/19/17 1408 CLEARANCE CENTER MANAGER: 05/19/17 1449 DIS IN 05/19/17 [id number] [place] [address]
--- NOTE | 2017-05-28 12:46 | DS ---
PATIENT:CRISTI SAGASTUME :40 MEDICAL RECORD: [id number] DISCHARGE SUMMARY ADMISSION DATE: 05/12/17 DISCHARGE DATE: 05/19/17 IDENTIFYING DATA: The patient is 77 years old and she was admitted to the hospital on a voluntary basis because of aggression. The patient came from home and prior to that was living in the [facility]. Her son apparently took her out of the care home and felt that she could live with him and that he could provide for her needs. Unfortunately, they have not been able to provide for her needs. The patient has been agitated, confused, aggressive and combative. They had been unable to manage her and cannot provide for her needs. The patient had little or no recollection of this. HOSPITAL COURSE: The patient was admitted to the hospital and fully evaluated from both a medical, psychological, and social standpoint. She was treated with both mood stabilizing and memory enhancing medications. She did show significant improvement. She was subsequently transitioned to a long-term care setting. DISCHARGE DIAGNOSES: AXIS I: Vascular dementia. AXIS II: None. AXIS III: Status post stroke. AXIS IV: Moderate stressors. AXIS V: Global assessment of functioning is 40. PLAN: At the time of discharge, the patient was in good behavioral control and did not represent an acute risk to herself or others. She is in need of 71-cove-c-day supervision and unfortunately her long-term prognosis is poor. TRANSINT:[id number] Voice Confirmation ID: [id number] DOCUMENT ID: [id number] YANET ALBARRAN MD at 1246 CC: [id number] DICTATION DATE: 05/27/17 1355 BOARD MEMBER: 05/28/17 1106 DIS IN 05/19/17 [address] [place] [address]
== END 2017-05-19 10:30 | DRG 57 ==
LOC: D.ER 09:55 → D.PSYCH 13:45
PROVIDERS: Family Medicine; ADMIT Psychiatry & Neurology Psychiatry
DX: I69.919 Unspecified symptoms and signs involving cognitive functions following unspecified cerebrovascular disease (principal); F01.51 Vascular dementia, unspecified severity, with behavioral disturbance; I69.354 Hemiplegia and hemiparesis following cerebral infarction affecting left non-dominant side; N39.0 Urinary tract infection, site not specified; E78.5 Hyperlipidemia, unspecified; F41.8 Other specified anxiety disorders; M62.422 Contracture of muscle, left upper arm; Z74.09 Other reduced mobility; M19.90 Unspecified osteoarthritis, unspecified site; K59.00 Constipation, unspecified; E55.9 Vitamin D deficiency, unspecified